=== PATIENT | female | born 1980 | race Caucasian/White ===

== ENCOUNTER 2020-09-13 14:55 | Outpatient (REF) | payer MEDICAID, SELFPAY ==
[2020-09-14 04:24] LABS: CT PCR NOT DETECTED (Not Detect.); NG PCR NOT DETECTED (Not Detect.)
[2020-09-14 09:34] LABS: BV Int Neg Control Negative (Negative); BV Int Pos Control Positive (Positive)
[2020-09-16 12:47] LABS: HPV mRNA E6/E7 rflx Not Detected (Not Detected)
== END 2020-09-13 14:56 | disposition home or self-care (01) ==
LOC: HO.LAB 14:55
PROVIDERS: PCP Family Medicine; Visit Provider Advanced Practice Midwife
DX: Z01.419 Encounter for gynecological examination (general) (routine) without abnormal findings (principal); N89.8 Other specified noninflammatory disorders of vagina; Z20.2 Contact with and (suspected) exposure to infections with a predominantly sexual mode of transmission
CPT/HCPCS: 87480; 87491; 87510; 87591; 87624; 87625; 87660; 88142

== ENCOUNTER 2021-02-01 13:25 | Outpatient (REF) | payer MEDICAID, SELFPAY | END 2021-02-01 13:26 | disposition home or self-care (01) | LOC: HO.MAMMO 13:25 | PROVIDERS: PCP Family Medicine; Visit Provider Advanced Practice Midwife | DX: Z13.89 Encounter for screening for other disorder (principal) ==

== ENCOUNTER 2021-12-28 14:38 | Outpatient (REF) | payer MEDICAID, SELFPAY ==
[2021-12-28 17:57] LABS: CT PCR NOT DETECTED (Not Detect.); NG PCR NOT DETECTED (Not Detect.)
[2021-12-29 11:04] LABS: BV Int Neg Control Negative (Negative); BV Int Pos Control Positive (Positive)
== END 2021-12-28 14:39 | disposition home or self-care (01) ==
LOC: HO.LAB 14:38
PROVIDERS: Visit Provider Advanced Practice Midwife
DX: Z01.411 Encounter for gynecological examination (general) (routine) with abnormal findings (principal); R10.2 Pelvic and perineal pain; N63.0 Unspecified lump in unspecified breast; Z20.2 Contact with and (suspected) exposure to infections with a predominantly sexual mode of transmission
CPT/HCPCS: 87480; 87491; 87510; 87591; 87660

== ENCOUNTER 2022-01-18 10:36 | Outpatient (REF) | payer MEDICAID, SELFPAY ==
--- NOTE | ~2022-01-18 | MM_ITS ---
EXAMINATION: MM DIAGNOSTIC DIGITAL BREAST TOMOSYNTHESIS, BILATERAL US DIAGNOSTIC ULTRASOUND BREAST, LEFT CLINICAL INFORMATION: 41-year-old with recent palpable fullness anterior left breast, now resolved. No palpable concern at time of appointment. The lifetime risk of breast cancer based on the Tyrer-Cuzick Model is 11%. COMPARISON: Mammography: 09/27/2017 (diagnostic baseline), bilateral targeted breast ultrasound 09/27/2017. TECHNIQUE: Digital breast tomosynthesis is performed in both the craniocaudal and mediolateral oblique views along with computer-aided detection (CAD). Synthesized 2D images are generated from the tomosynthesis. Ultrasound left breast is targeted to recent area of clinical concern predominantly 2:00 through 5:00 position. Grayscale imaging and color Doppler are performed without and with harmonics. FINDINGS: The breasts are heterogeneously dense, which may obscure small masses (ACR BI-RADS breast composition Category c). There is fibrocystic parenchymal pattern with small round and oval areas of minor waxing and waning asymmetry. There is no significant mass or architectural abnormality or abnormal calcifications. The skin contours are smooth. Ultrasound left breast demonstrates scattered small cysts in the targeted area under 1 cm in size. There is no solid mass or architectural abnormality or focal duct ectasia. Results are discussed with the patient at time of visit, using an food and nutrition teacher. MM/MM tomosynthesis screening BI IMPRESSION: -No mammographic evidence of malignancy. -Small scattered simple cysts on targeted ultrasound left breast. ASSESSMENT: BI-RADS 2: Benign RECOMMENDATION: Routine annual mammography screening. This patient's information was entered into a reminder system with a target due date for their next mammogram.
== END 2022-01-18 10:37 | disposition home or self-care (01) ==
LOC: HO.MAMMO 10:36
PROVIDERS: Visit Provider Advanced Practice Midwife
DX: Z12.31 Encounter for screening mammogram for malignant neoplasm of breast (principal); N63.21 Unspecified lump in the left breast, upper outer quadrant
CPT/HCPCS: 76642; 77063; 77067

== ENCOUNTER 2022-01-30 10:12 | Outpatient (REF) | payer MEDICAID, SELFPAY ==
--- NOTE | ~2022-01-30 | US_ITS ---
EXAMINATION: US PELVIS AND TRANSVAGINAL CLINICAL INFORMATION: Pain. COMPARISON: None TECHNIQUE: Ultrasound of the pelvis is performed using both transabdominal and transvaginal transducers along with Doppler. Transvaginal imaging is performed due to inadequate visualization transabdominally. FINDINGS: The uterus is anteverted and measures 8.6 x 5.1 x 5.3 cm. The endometrium appears slightly thickened measuring 1.7 cm. The endometrium is slightly heterogeneous-appearing. There is increased vascularity seen. Follow-up exam following several menstrual cycles is recommended. No focal uterine lesion is seen. There are nabothian cysts in the cervix. Ovaries are normal-appearing. The right ovary measures 2.6 x 3.2 x 1.1 cm. The left ovary measures 2.5 x 1.8 x 1.4 cm. There are several small left ovarian cysts. There is no fluid in the pelvis. US/US pelvic and transvaginal IMPRESSION: Slightly thickened heterogeneous-appearing endometrium. Follow-up exam following several menstrual cycles is recommended to see if this is a persistent finding. Otherwise, unremarkable exam.
== END 2022-01-30 10:13 | disposition home or self-care (01) ==
LOC: HO.US 10:12
PROVIDERS: Visit Provider Advanced Practice Midwife
DX: R10.2 Pelvic and perineal pain (principal)
CPT/HCPCS: 76830; 76856

== ENCOUNTER → 2022-02-17 13:15 | Outpatient (BNVA) | payer MEDICAID, SELFPAY | PROVIDERS: PCP Family Medicine; Visit Provider Advanced Practice Midwife | DX: Z71.2 Person consulting for explanation of examination or test findings (principal); R10.2 Pelvic and perineal pain; R93.89 Abnormal findings on diagnostic imaging of other specified body structures; Q51.9 Congenital malformation of uterus and cervix, unspecified | CPT/HCPCS: 99212 ==

== ENCOUNTER 2022-04-19 12:23 | Outpatient (REF) | payer MEDICAID, SELFPAY ==
--- NOTE | ~2022-04-19 | US_ITS ---
EXAMINATION: US PELVIS CLINICAL INFORMATION: Bilateral lower pelvic pain. Uterus/cervix malformation. Two-month followup. COMPARISON: 01/31/2022 TECHNIQUE: Ultrasound of the pelvis is performed using both transabdominal and transvaginal transducers along with Doppler. Transvaginal imaging is performed due to inadequate visualization transabdominally. FINDINGS: UTERUS: The uterus is anteverted and measures 8.4 x 4.3 x 5.5 cm. Nabothian cysts are present within the cervix. The double wall endometrial thickness is thickened at 19 mm. There is again noted to be a poorly defined essentially isoechoic endometrial region measuring 2.6 x 1.1 x 2.8 cm in size which may represent an endometrial polyp. This was seen on previous study of 01/31/2022 however it is difficult to compare sizes without definite change in configuration. This may represent an endometrial polyp. The uterus is smooth in contour and has normal myometrial echogenicity. No visible fibroid. ADNEXA: Both ovaries are visualized. There is normal color flow to the adnexa. There is no ovarian torsion. There is no significant pelvic ascites or fluid collection. Right ovary measures 3.0 x 2.2 x 2.2 cm. There is a question of ruptured corpus luteum measuring 2.2 x 1.5 x 1.6 cm in size with minimal amount of free fluid adjacent to the ovary. Left ovary measures 2.0 x 1.9 x 1.1 cm. No left ovarian abnormality appreciated. US/US pelvic and transvaginal IMPRESSION: Question ruptured corpus luteal cyst right ovary as described. Nabothian cyst. Thickened endometrium to 1.9 cm in diameter with question isoechoic poorly-defined mass measuring up to 2.8 cm in size which could possibly represent an endometrial polyp. I cannot definitely perceive significant change compared to imaging of 01/30/2022.
== END 2022-04-19 12:24 | disposition home or self-care (01) ==
LOC: HO.US 12:23
PROVIDERS: Visit Provider Advanced Practice Midwife
DX: Q51.9 Congenital malformation of uterus and cervix, unspecified (principal)
CPT/HCPCS: 76830; 76856

== ENCOUNTER → 2022-05-30 14:37 | Outpatient (BNVA) | payer MEDICAID, SELFPAY | PROVIDERS: PCP Family Medicine; Visit Provider Advanced Practice Midwife | DX: N85.8 Other specified noninflammatory disorders of uterus (principal); Z71.2 Person consulting for explanation of examination or test findings | CPT/HCPCS: 99212 ==

== ENCOUNTER → 2022-07-03 14:53 | Outpatient (BNVA) | payer MEDICAID, SELFPAY | PROVIDERS: PCP Family Medicine; Visit Provider Obstetrics & Gynecology | DX: N94.89 Other specified conditions associated with female genital organs and menstrual cycle (principal) | CPT/HCPCS: 99212 ==

== ENCOUNTER 2022-07-21 08:35 | Day surgery (SDC) | payer MEDICAID, SELFPAY ==
[2022-07-17 10:34] VITALS: BMI 28.3
--- NOTE | 2022-07-20 08:48 | HO.ANESPROP2 ---
Documented by User: Marija Watkins NP 07/20/22 08:48 HPI - Anesthesia Eval Consult details Narrative: 42yo F for D&C Hysteroscopy possible polypectomy,possible myomectomy PMFSH Active Problems Active Problems: All Active Problems (Updated 07/03/22 @ 15:37 by Zev Zhu MD) Endometrial mass (Acute) Uterine mass (Acute) Encounter to discuss test results (Acute) Pelvic pain (Acute) Past Medical History Medical History Pelvic pain HTN (hypertension) Family History Family History Father Hypertension Hx of diabetes mellitus Hx of heart disorder Mother Hypertension Paternal Grandmother Family hx-stroke Paternal Grandfather Hypertension Maternal Aunt Hx of diabetes mellitus Maternal Grandmother Family history of cancer Surgical History Surgical History History of facial surgery Hx of tubal ligation Social History Alcohol intake: never Patient Tobacco Use Status: Never used Tobacco Gender identity: Female Meds Allergies Allergy/AdvReac Type Severity Reaction Status Date / Time No Known Allergies Allergy Verified 08/15/23 13:27 Home Medications Medication Instructions Recorded Confirmed Last Taken Type lisinopril 5 mg tablet 5 mg PO DAILY 12/28/21 07/21/22 Unknown History Exam Exam Date and Time: July 20, 2022 0848 Height,Weight and Vital Signs: Height 5 ft 2 in Weight 70.307 kg Assessment and Plan Assessment Anesthesia Assessment: Chart Reviewed Documented by User: Ancelmo Epps MD 09/13/23 23:39 PMFSH Past Medical History Medical History Pelvic pain HTN (hypertension) Functional capacity: independent ambulation Family History Family History Father Hypertension Hx of diabetes mellitus Hx of heart disorder Mother Hypertension Paternal Grandmother Family hx-stroke Paternal Grandfather Hypertension Maternal Aunt Hx of diabetes mellitus Maternal Grandmother Family history of cancer Family history of problems with anesthesia: No Surgical History Surgical History History of facial surgery Hx of tubal ligation History of Problems with Anesthesia: No Social History Alcohol intake: never Patient Tobacco Use Status: Never used Tobacco Gender identity: Female Meds Allergies Allergy/AdvReac Type Severity Reaction Status Date / Time No Known Allergies Allergy Verified 08/15/23 13:27 Home Medications Medication Instructions Recorded Confirmed Last Taken Type lisinopril 5 mg tablet 5 mg PO DAILY 12/28/21 07/21/22 Unknown History Exam Airway Mallampati Class: III Loose/Missing/Broken Teeth: Yes (Fillings ) Assessment and Plan Assessment Anesthesia Assessment: Anesthesia Plan Discussed Final Anesthetic Review Family History of Problems with Anesthesia: No History of Problems with Anesthesia: No NPO: Yes ASA Class: II Final Preanesthetic Review: Meds/Allgs Chart Reviewed, Consent Obtained/Reviewed and Anes Risks/Benef Reviewed Patient Risk: Intermediate Procedure Risk: Intermediate Anesthetic Plan Anesthetic Plan: GA and Agree w/ Assess. and Plan Disposition: Standard PACU
[2022-07-21] VITALS (7 sets, daily range): BP systolic 128–168; BP diastolic 74–94; PULSE 79–96; RESP 15–16; TEMP 36.2–36.7; O2SAT 98–100; BMI 27.4
[2022-07-21 09:18] LABS: UPreg QC Valid YES; Urine Pregnancy NEGATIVE (NEGATIVE)
[2022-07-21] MEDS: Lactated Ringers 1,000 ML 100 ML IVCONT (09:26)
--- NOTE | 2022-07-21 11:17 | PM.OP ---
Brief Operative Note Date of Service: 07/21/22 Pre-op diagnosis: Abnormal uterine bleeding, endometrial polyp by ultrasound Post-op diagnosis: same (Endometrial polyp) Procedure: Hysteroscopy D&C, Polypectomy Surgeon: Zev Zhu MD Anesthesia: GLMA Was an High School Coach used for this Procedure?: No Estimated blood loss (mL): 0 Pathology: other (Endometrial Scrapping. Polyp) Condition: stable Disposition: PACU
--- NOTE | 2022-07-21 11:18 | W.PM.OPN ---
Operative Note Operative Note Date of Service: 07/21/22 Narrative: Preop Diagnosis: Abnormal uterine bleeding and Endometrial polyp by US Operation: Diagnostic Hysteroscopy, Dilataion & Curettage and polypectomy Post Op Diagnosis: Endometrial Polyp QBL: Minimal Anesthesia: GLMA Surgeon: Zev Zhu MD Marketing Proposal Specialist: None Complication: None Pathology: Endometrial Scrapings, Endometrial polyp Procedure: The patient was put in the dorsal lithotomy position, scrubbed, and draped in the usual manner. A sterile speculum was inserted in the patient's vagina. The anterior lip of the cervix was grasped with a single tooth tenaculum. The cervix was dilated up to 5 mm, then the scope was inserted in the patient's uterus. Inspection revealed endometrial polyp. The Myosure Reach device was used; it was introduced through the operative channel and polypectomy done with no complications. The scope was then taken out from the uterine cavity, sharp curettings was carried on with minimal to moderate amount of tissues retrieved. At the end of the procedure, all instruments were taken out of the patient uterine and vaginal cavity. The single tooth tenaculum was removed and homeostasis was assured using pressure,. The patient tolerated the procedure well and was transferred to the PACU in a stable condition.
== END 2022-07-21 12:45 | disposition home or self-care (01) ==
PROVIDERS: PCP Family Medicine; Visit Provider Obstetrics & Gynecology
PROC: 0UDB8ZZ Extraction of Endometrium, Via Natural or Artificial Opening Endoscopic (ICD-10-PCS; CPT 58558; principal; 2022-07-21 10:30)
DX: N93.9 Abnormal uterine and vaginal bleeding, unspecified (principal); N84.0 Polyp of corpus uteri; I10 Essential (primary) hypertension; Z79.899 Other long term (current) drug therapy; Z98.51 Tubal ligation status
CPT/HCPCS: 58558; 81025; 88305; J0330; J1100; J2250; J2405; J3010

== ENCOUNTER → 2022-08-02 12:01 | Outpatient (BNVA) | payer MEDICAID, SELFPAY | PROVIDERS: PCP Family Medicine; Visit Provider Obstetrics & Gynecology | DX: N94.89 Other specified conditions associated with female genital organs and menstrual cycle (principal) | CPT/HCPCS: 99212 ==

== ENCOUNTER 2022-10-17 18:10 | Emergency (ER) | payer MEDICAID, SELFPAY ==
--- NOTE | ~2022-10-17 | CT_ITS ---
EXAMINATION: CT ANGIOGRAM OF THE CHEST WITH AND WITHOUT CONTRAST (CT PULMONARY ANGIOGRAM FOR PE) CLINICAL INFORMATION: Reason for Exam + dimer sob COMPARISON: None TECHNIQUE: Prior to contrast administration, noncontrast localization images were obtained. Subsequently, multidetector volumetric imaging was performed from the thoracic inlet to below the diaphragms following the administration of 71 mL Omnipaque 350 intravenous contrast. No contrast reaction reported Sagittal, coronal, and MIP oblique sagittal reformatted images were obtained on the CT workstation, uploaded to PACS, and reviewed. This CT examination was performed using dose optimization techniques as appropriate, variously including the following: *Automated exposure control *Adjustment of mA and/or kV according to patient size (this includes techniques or standardized protocols for targeted exams where dose is matched to indication/reason for exam; i.e. extremities or head) *Use of iterative reconstruction technique Total exam dose-length product 147 mGy-cm FINDINGS: QUALITY OF STUDY/CONTRAST BOLUS: Satisfactory. PULMONARY ARTERIES: No central or segmental pulmonary emboli. THORACIC AORTA: No aneurysm or dissection. LUNG: No focal consolidation, nodules or masses. PLEURA: No pleural effusion or pneumothorax. MEDIASTINUM: Normal heart size. No pericardial effusion. No hilar or mediastinal lymphadenopathy. No evidence of septal bowing or right heart strain. CHEST WALL/AXILLA: No axillary or internal mammary lymphadenopathy. OSSEOUS STRUCTURES: No acute or suspicious osseous abnormality. UPPER ABDOMEN: There is a 1.7 cm enhancing structure in the lateral segment of liver adjacent to the falciform ligament with enhancing portions similar to that of blood pool favored to represent a hemangioma. CT/CT angio chest PE protocol IMPRESSION: * No pulmonary embolism. * No aortic dissection. * No acute pulmonary abnormalities. * Probable hemangioma in the lateral segment of the liver. Recommend ultrasound to confirm, nonemergent. VTE: negative
--- NOTE | ~2022-10-17 | XR_ITS ---
EXAMINATION: XR CHEST CLINICAL INFORMATION: Chest pain COMPARISON: None TECHNIQUE: Frontal view of the chest was obtained. FINDINGS: No significant abnormality is noted involving the heart, lungs, mediastinum, bony thorax or soft tissues. XR/XR chest 1V IMPRESSION: Unremarkable chest examination.
[2022-10-17 19:12] VITALS: BP 165/84; PULSE 90; RESP 16; TEMP 37.1; O2SAT 100; BMI 27.6
--- NOTE | 2022-10-17 19:20 | ED.GENADULT ---
HPI - General Adult General Chief complaint: Abdominal Pain <NICO Wang - Last Filed: 10/17/22 19:59> Stated complaint: L side bothersome <NICO Wang - Last Filed: 10/17/22 19:59> Time Seen by Provider: 10/17/22 23:21 <NICO Wang - Last Filed: 10/17/22 19:59> Source: patient, family and automobile service writer <Elisa Ridley MD - Last Filed: 10/17/22 23:44> Mode of arrival: ambulatory <Elisa Ridley MD - Last Filed: 10/17/22 23:44> Limitations: no limitations <Elisa Ridley MD - Last Filed: 10/17/22 23:44> History of Present Illness HPI narrative: 42-year-old female came in for evaluation of left chest / left upper quadrant abdominal pain that started 4 days ago, pain was described as constant for the last 4 days, pain is localized to the left rib area and left upper quadrant abdominal area, no radiation, pain is moderate 5/10, pain is worsening with deep breath and movement, patient declined recent travel or prolonged immobilization, no lower extremity swelling or pain, no difficulty breathing, no history of DVT or PE. No nausea, no vomiting, no diarrhea, normal bowel movements, no dysuria, no frequency urination, patient declined chance being , no risk for STD or vaginal discharge. <Elisa Ridley MD - Last Filed: 10/17/22 23:44> Related Data Home medications: Home Medications Medication Instructions Recorded Confirmed lisinopril 5 mg tablet 5 mg PO DAILY 12/28/21 07/21/22 Previous Rx's Medication Instructions Recorded ibuprofen 600 mg tablet 400 mg PO Q8H PRN pain #20 tabs 10/17/22 <NICO Wang - Last Filed: 10/17/22 19:59> Allergies/adverse reactions: Allergies Allergy/AdvReac Type Severity Reaction Status Date / Time No Known Allergies Allergy Verified 08/02/22 12:11 <NICO Wang - Last Filed: 10/17/22 19:59> Review of Systems Review of Systems: All other systems are reviewed and are negative Constitutional: Reports as per HPI and Reports no additional constitutional complaints Eyes: Reports as per HPI and Reports no additional eye complaints Reports system reviewed and no additional complaints, except as documented Cardiovascular: Reports as per HPI and Reports no additional cardiovascular complaints Respiratory: Reports as per HPI and Reports no additional respiratory complaints Gastrointestinal: Reports as per HPI and Reports no additional gastrointestinal complaints Genitourinary: Reports no additional female genitourinary complaints Musculoskeletal: Reports no additional musculoskeletal complaints Skin/Breast: Reports system reviewed and no additional complaints, except as docu Psychiatric: Reports no additional psychiatric complaints Endocrine: Reports no additional endocrine complaints Hematologic/Lymphatic: Reports no additional hematologic/lymphatic complaints Allergic/Immunologic: Reports no additional allergic/immunologic complaints Reports system reviewed and no additional complaints, except as documented and Reports Abnormal speech present <Elisa Ridley MD - Last Filed: 10/17/22 23:44> [facility] Past Medical History Medical History: Medical History HTN (hypertension) Pelvic pain <NICO Wang - Last Filed: 10/17/22 19:59> Surgical History: Surgical History History of facial surgery Hx of tubal ligation <NICO Wang - Last Filed: 10/17/22 19:59> Family History Family History: Family History Father Hypertension Hx of diabetes mellitus Hx of heart disorder Mother Hypertension Paternal Grandmother Family hx-stroke Paternal Grandfather Hypertension Maternal Aunt Hx of diabetes mellitus Maternal Grandmother Family history of cancer <NICO Wang - Last Filed: 10/17/22 19:59> Social History Social History: Social History Alcohol intake: never Patient Tobacco Use Status: Never used Tobacco Advance Directives: No Advance Directives Information Provided: No Gender identity: Female <NICO Wang - Last Filed: 10/17/22 19:59> Physical Exam ED Vital Signs: Vital Signs - 24 hr 10/17/22 19:12 10/17/22 23:20 Temperature 98.7 F 98.1 F Pulse Rate 90 98 Respiratory Rate 16 16 Blood Pressure 165/84 H 142/71 H Pulse Oximetry 100 100 Oxygen Delivery Method Room Air Room Air BMI result Body Mass Index 27.6 <NICO Wang - Last Filed: 10/17/22 19:59> Vital Signs - 24 hr 10/17/22 19:12 10/17/22 23:20 Temperature 98.7 F 98.1 F Pulse Rate 90 98 Respiratory Rate 16 16 Blood Pressure 165/84 H 142/71 H Pulse Oximetry 100 100 Oxygen Delivery Method Room Air Room Air BMI result Body Mass Index 27.6 vital signs have been reviewed as appeared to be correct. Blood pressure normal. Heart rate normal. Respiration rate normal. Temperature normal. Oxygen saturation normal. <Elisa Ridley MD - Last Filed: 10/17/22 23:44> Appearance: Alert. Oriented X3. No acute distress. Head: Normal external exam. Normocephalic. Atraumatic. No Asif signs noted. No raccoon eyes noted Eyes: PERRLA. EOMI. Conjunctiva and sclera normal. Eyelids normal. ENT: TM's Normal. Pharynx normal. Uvula midline. Moist mucous membranes. No trismus noted. No drooling noted. No muffled voice noted. Neck: Normal inspection. Neck supple. FROM. No adenopathy. Thyroid Normal. No meningeal signs. No neck mass noted. CVS: Normal heart rate and rhythm. Heart sound normal. No murmurs noted. Pulses normal throughout. Respiratory: No respiratory distress. Painless inspiration. Breath sounds normal. No wheezes/rales/rhonchi noted. Chest nontender. No accessory muscle usage noted or decreased air movement noted. Abdomen: Soft and nontender. Bowel sounds normal in all 4 quadrants. No distention noted. No organomegaly noted. No visible injury noted. Back: No CVA tenderness. Full range of motion noted. Skin: Skin warm and dry. Normal skin color. Normal skin turgor. No rashes/lesions/lacerations noted. Extremities: No lower extremity edema. Extremities exhibit normal range of motion. Extremities nontender. Neuro: Oriented X 3. Cranial nerve exam: II-XII are grossly intact No motor deficit. No sensory deficit. Reflexes normal. <Elisa Ridley MD - Last Filed: 10/17/22 23:44> Course Course Course Narrative: 1919 42 year old female presents w/ LUQ pain, cp and pain is also felt in her ribs with deep breathing X 4 days. No hx of PE or DVT PE benign Plan- labs imaging <NICO Wang - Last Filed: 10/17/22 19:59> Reevaluation(s) Reevaluation #1: 42-year-old female otherwise healthy presented with left-sided chest/ left upper quadrant pain. Patient has unremarkable labs/ UA. CTA of the chest was ordered because the concern of D-dimer elevation and risk for PE , no PE on the CT. Will discharge the patient after reassurance and recommended NSAIDs for pain. <Elisa Ridley MD - Last Filed: 10/17/22 23:44> Medical Decision Making Differential Diagnosis Differential Diagnoses: The differential diagnosis associated with the presentation includes ( Chest pain/ pneumonia/pleural effusion /pleurisy/ PE.) <Elisa Ridley MD - Last Filed: 10/17/22 23:44> Lab Data MDM Lab Attestation statement: I reviewed the patient's lab results. <Elisa Ridley MD - Last Filed: 10/17/22 23:44> Result Diagrams: : 10/17/22 19:39 10/17/22 19:39 <NICO Wang - Last Filed: 10/17/22 19:59> Labs: Lab Results 10/17/22 10/17/22 10/17/22 Range/Units 19:38 19:39 19:39 WBC 9.6 (4.8-10.8) X10*3/uL RBC 3.65 L (4.20-5.50) X10*6/uL Hgb 10.3 L (12.0-16.0) g/dl Hct 31.9 L (37.0-47.0) % MCV 87.4 (80.0-98.0) fL MCH 28.2 (27.0-33.0) pg MCHC 32.3 (31.0-35.0) g/dl RDW 12.2 (11.0-16.0) % Plt Count 342 (160-400) X10*3/uL MPV 8.8 L (9.4-12.3) fL Immature Gran % (Auto) 0.4 (0.0-0.4) % Neut % (Auto) 61.8 (45-73) % Lymph % (Auto) 27.8 (20-40) % [place] % (Auto) 8.8 (2-11) % Eos % (Auto) 0.9 (0-4) % Baso % (Auto) 0.3 (0-2) % Lymph # (Auto) 2.7 (1.2-4.9) X10*3/uL [place] # (Auto) 0.8 (0.1-1.2) X10*3/uL Eos # (Auto) 0.1 (0.0-0.4) X10*3/uL Baso # (Auto) 0.0 (0.0-0.2) X10*3/uL Abs Immat Gran (auto) 0.04 H (0.00-0.03) X10*3/uL Absolute Neuts (auto) 5.9 (2.0-8.3) x10*3/uL Absolute Nucleated RBC 0.000 (0.0-0.012) X10*3/uL Nucleated RBC % (auto) 0.0 (0.0-0.2) /100WBC D-Dimer High Sensitivty 387 NG/ML Sodium (135-145) mmol/L Potassium (3.3-5.1) mmol/L Chloride (96-108) mmol/L Carbon Dioxide (22-29) mmol/L Anion Gap (12-20) BUN (9-16) mg/dL Creatinine (0.5-1.4) mg/dL Estim Creat Clear Calc Estimated GFR Random Glucose (60-115) mg/dL Calcium (8.4-10.2) mg/dL Magnesium (1.6-2.6) mg/dL Total Bilirubin (0.0-1.0) mg/dL AST (5-31) U/L ALT (0-31) U/L Alkaline Phosphatase (39-117) U/L Troponin I High Sens (<3.5-17.0) ng/L Total Protein (6.5-8.0) g/dL Albumin (3.5-5.0) g/dL Influenza Type A (PCR) NEGATIVE (Negative) Influenza Type B (PCR) NEGATIVE (Negative) RSV RNA Qual (PCR) NEGATIVE (Negative) SARS-CoV-2 RNA (RT-PCR) NEGATIVE (Negative) 10/17/22 10/17/22 Range/Units 19:39 19:39 WBC (4.8-10.8) X10*3/uL RBC (4.20-5.50) X10*6/uL Hgb (12.0-16.0) g/dl Hct (37.0-47.0) % MCV (80.0-98.0) fL MCH (27.0-33.0) pg MCHC (31.0-35.0) g/dl RDW (11.0-16.0) % Plt Count (160-400) X10*3/uL MPV (9.4-12.3) fL Immature Gran % (Auto) (0.0-0.4) % Neut % (Auto) (45-73) % Lymph % (Auto) (20-40) % [place] % (Auto) (2-11) % Eos % (Auto) (0-4) % Baso % (Auto) (0-2) % Lymph # (Auto) (1.2-4.9) X10*3/uL [place] # (Auto) (0.1-1.2) X10*3/uL Eos # (Auto) (0.0-0.4) X10*3/uL Baso # (Auto) (0.0-0.2) X10*3/uL Abs Immat Gran (auto) (0.00-0.03) X10*3/uL Absolute Neuts (auto) (2.0-8.3) x10*3/uL Absolute Nucleated RBC (0.0-0.012) X10*3/uL Nucleated RBC % (auto) (0.0-0.2) /100WBC D-Dimer High Sensitivty NG/ML Sodium 139 (135-145) mmol/L Potassium 3.7 (3.3-5.1) mmol/L Chloride 104 (96-108) mmol/L Carbon Dioxide 25 (22-29) mmol/L Anion Gap 14 (12-20) BUN 10 (9-16) mg/dL Creatinine 0.68 (0.5-1.4) mg/dL Estim Creat Clear Calc 97.8 Estimated GFR > 60 Random Glucose 95 (60-115) mg/dL Calcium 9.2 (8.4-10.2) mg/dL Magnesium 2.1 (1.6-2.6) mg/dL Total Bilirubin 0.4 (0.0-1.0) mg/dL AST 17 (5-31) U/L ALT 19 (0-31) U/L Alkaline Phosphatase 85 (39-117) U/L Troponin I High Sens < 3.5 (<3.5-17.0) ng/L Total Protein 7.6 (6.5-8.0) g/dL Albumin 4.5 (3.5-5.0) g/dL Influenza Type A (PCR) (Negative) Influenza Type B (PCR) (Negative) RSV RNA Qual (PCR) (Negative) SARS-CoV-2 RNA (RT-PCR) (Negative) <NICO Wang - Last Filed: 10/17/22 19:59> Lab Results 10/17/22 10/17/22 10/17/22 Range/Units 19:38 19:39 19:39 WBC 9.6 (4.8-10.8) X10*3/uL RBC 3.65 L (4.20-5.50) X10*6/uL Hgb 10.3 L (12.0-16.0) g/dl Hct 31.9 L (37.0-47.0) % MCV 87.4 (80.0-98.0) fL MCH 28.2 (27.0-33.0) pg MCHC 32.3 (31.0-35.0) g/dl RDW 12.2 (11.0-16.0) % Plt Count 342 (160-400) X10*3/uL MPV 8.8 L (9.4-12.3) fL Immature Gran % (Auto) 0.4 (0.0-0.4) % Neut % (Auto) 61.8 (45-73) % Lymph % (Auto) 27.8 (20-40) % [place] % (Auto) 8.8 (2-11) % Eos % (Auto) 0.9 (0-4) % Baso % (Auto) 0.3 (0-2) % Lymph # (Auto) 2.7 (1.2-4.9) X10*3/uL [place] # (Auto) 0.8 (0.1-1.2) X10*3/uL Eos # (Auto) 0.1 (0.0-0.4) X10*3/uL Baso # (Auto) 0.0 (0.0-0.2) X10*3/uL Abs Immat Gran (auto) 0.04 H (0.00-0.03) X10*3/uL Absolute Neuts (auto) 5.9 (2.0-8.3) x10*3/uL Absolute Nucleated RBC 0.000 (0.0-0.012) X10*3/uL Nucleated RBC % (auto) 0.0 (0.0-0.2) /100WBC D-Dimer High Sensitivty 387 NG/ML Sodium (135-145) mmol/L Potassium (3.3-5.1) mmol/L Chloride (96-108) mmol/L Carbon Dioxide (22-29) mmol/L Anion Gap (12-20) BUN (9-16) mg/dL Creatinine (0.5-1.4) mg/dL Estim Creat Clear Calc Estimated GFR Random Glucose (60-115) mg/dL Calcium (8.4-10.2) mg/dL Magnesium (1.6-2.6) mg/dL Total Bilirubin (0.0-1.0) mg/dL AST (5-31) U/L ALT (0-31) U/L Alkaline Phosphatase (39-117) U/L Troponin I High Sens (<3.5-17.0) ng/L Total Protein (6.5-8.0) g/dL Albumin (3.5-5.0) g/dL Influenza Type A (PCR) NEGATIVE (Negative) Influenza Type B (PCR) NEGATIVE (Negative) RSV RNA Qual (PCR) NEGATIVE (Negative) SARS-CoV-2 RNA (RT-PCR) NEGATIVE (Negative) 10/17/22 10/17/22 Range/Units 19:39 19:39 WBC (4.8-10.8) X10*3/uL RBC (4.20-5.50) X10*6/uL Hgb (12.0-16.0) g/dl Hct (37.0-47.0) % MCV (80.0-98.0) fL MCH (27.0-33.0) pg MCHC (31.0-35.0) g/dl RDW (11.0-16.0) % Plt Count (160-400) X10*3/uL MPV (9.4-12.3) fL Immature Gran % (Auto) (0.0-0.4) % Neut % (Auto) (45-73) % Lymph % (Auto) (20-40) % [place] % (Auto) (2-11) % Eos % (Auto) (0-4) % Baso % (Auto) (0-2) % Lymph # (Auto) (1.2-4.9) X10*3/uL [place] # (Auto) (0.1-1.2) X10*3/uL Eos # (Auto) (0.0-0.4) X10*3/uL Baso # (Auto) (0.0-0.2) X10*3/uL Abs Immat Gran (auto) (0.00-0.03) X10*3/uL Absolute Neuts (auto) (2.0-8.3) x10*3/uL Absolute Nucleated RBC (0.0-0.012) X10*3/uL Nucleated RBC % (auto) (0.0-0.2) /100WBC D-Dimer High Sensitivty NG/ML Sodium 139 (135-145) mmol/L Potassium 3.7 (3.3-5.1) mmol/L Chloride 104 (96-108) mmol/L Carbon Dioxide 25 (22-29) mmol/L Anion Gap 14 (12-20) BUN 10 (9-16) mg/dL Creatinine 0.68 (0.5-1.4) mg/dL Estim Creat Clear Calc 97.8 Estimated GFR > 60 Random Glucose 95 (60-115) mg/dL Calcium 9.2 (8.4-10.2) mg/dL Magnesium 2.1 (1.6-2.6) mg/dL Total Bilirubin 0.4 (0.0-1.0) mg/dL AST 17 (5-31) U/L ALT 19 (0-31) U/L Alkaline Phosphatase 85 (39-117) U/L Troponin I High Sens < 3.5 (<3.5-17.0) ng/L Total Protein 7.6 (6.5-8.0) g/dL Albumin 4.5 (3.5-5.0) g/dL Influenza Type A (PCR) (Negative) Influenza Type B (PCR) (Negative) RSV RNA Qual (PCR) (Negative) SARS-CoV-2 RNA (RT-PCR) (Negative) <Elisa Ridley MD - Last Filed: 10/17/22 23:44> Independent Interpretation I performed an independent interpretation of an: EKG ( normal sinus rhythm at 92 beats per minutes, normal intervals, normal axis deviation, no ST-T changes, no change from previous EKG.), Plain X-Ray ( Chest: No acute pathology.) and CT Scan ( CT angio of the chest: No PE, no intrathoracic pathology.) <Elisa Ridley MD - Last Filed: 10/17/22 23:44> Radiology Impression Discussion of test interpretation with radiology: I have reviewed the radiologist's reading. <Elisa Ridley MD - Last Filed: 10/17/22 23:44> Discharge Plan Discharge Clinical Impression: Pleurisy <NICO Wang - Last Filed: 10/17/22 19:59> Patient Disposition: Home, Self-Care <NICO Wang - Last Filed: 10/17/22 19:59> Instructions: Pleurisy (ED) <NICO Wang - Last Filed: 10/17/22 19:59> Prescriptions: New ibuprofen 600 mg tablet 400 mg PO Q8H PRN (Reason: pain) Qty: 20 0RF No Action lisinopril 5 mg tablet 5 mg PO DAILY <NICO Wang - Last Filed: 10/17/22 19:59> Referrals: Marianna Jacobo, DO [Primary Care Provider] - <NICO Wang - Last Filed: 10/17/22 19:59>
--- NOTE | 2022-10-17 19:21 | ECG_ITS ---
Test Reason : ABDOMINAL PAIN Blood Pressure : / mmHG Vent. Rate : 092 BPM Atrial Rate : 092 BPM P-R Int : 146 ms QRS Dur : 082 ms QT Int : 346 ms P-R-T Axes : 046 030 031 degrees QTc Int : 427 ms Normal sinus rhythm Normal ECG When compared with ECG of 10-JAN-2016 16:50, No significant change was found Referred By: Josh Lindsey Electronically Signed By:WANDA ROJAS MD
[2022-10-17 19:44] LABS: MANUAL DIFF FLAG NO
[2022-10-17 19:46] LABS: Basophils Percent Auto 0.3 % (0-2); Eosinophils Absolute Auto 0.1 X10*3/uL (0.0-0.4); Eosinophils Percent Auto 0.9 % (0-4); Hematocrit 31.9 % (37.0-47.0); Hemoglobin 10.3 g/dl (12.0-16.0); Imm Gran Abs Auto 0.04 X10*3/uL (0.00-0.03); Imm Gran Pct Auto 0.4 % (0.0-0.4); Lymphocytes Absolute Auto 2.7 X10*3/uL (1.2-4.9); Lymphocytes Percent Auto 27.8 % (20-40); Mean Corpuscular HGB Conc 32.3 g/dl (31.0-35.0); Mean Corpuscular Hemoglobin 28.2 pg (27.0-33.0); Mean Corpuscular Volume 87.4 fL (80.0-98.0); Mean Platelet Volume 8.8 fL (9.4-12.3); Monocytes Absolute Auto 0.8 X10*3/uL (0.1-1.2); Monocytes Percent Auto 8.8 % (2-11); Neutrophils Absolute Auto 5.9 x10*3/uL (2.0-8.3); Neutrophils Percent Auto 61.8 % (45-73); Platelet Count 342 X10*3/uL (160-400); Red Blood Count 3.65 X10*6/uL (4.20-5.50); Red Cell Distribution Width 12.2 % (11.0-16.0); White Blood Count 9.6 X10*3/uL (4.8-10.8)
[2022-10-17 19:57] LABS: D Dimer High Sensitivity 387 NG/ML
[2022-10-17 20:01] LABS: Alanine Aminotransferase 19 U/L (0-31); Albumin Level 4.5 g/dL (3.5-5.0); Alkaline Phosphatase 85 U/L (39-117); Anion Gap 14 (12-20); Aspartate Amino Transferase 17 U/L (5-31); Bilirubin Total 0.4 mg/dL (0.0-1.0); Blood Urea Nitrogen 10 mg/dL (9-16); Calcium 9.2 mg/dL (8.4-10.2); Carbon Dioxide 25 mmol/L (22-29); Chloride 104 mmol/L (96-108); Creatinine Clr Calc Pharmacy 97.8; Estimated Glomerular Filt Rate > 60; Glucose Random 95 mg/dL (60-115); Magnesium 2.1 mg/dL (1.6-2.6); Potassium 3.7 mmol/L (3.3-5.1); Sodium 139 mmol/L (135-145); Total Protein 7.6 g/dL (6.5-8.0)
[2022-10-17 20:23] LABS: Troponin-I High Sensitivity < 3.5 ng/L (<3.5-17.0)
[2022-10-17 20:40] LABS: Influenza A PCR NEGATIVE (Negative); Influenza B PCR NEGATIVE (Negative); Resp Syncy Virus RNA Qual PCR NEGATIVE (Negative); SARS COV2 PCR INHOUSE NEGATIVE (Negative)
[2022-10-17 23:20] VITALS: BP 142/71; PULSE 98; RESP 16; TEMP 36.7; O2SAT 100
[2022-10-17 23:43] LABS: Appearance Urine Clear; Color Urine Dark Yellow; Glucose Urine UA Negative (Negative); Leukocyte Esterase Urine Trace (Negative); Nitrite Urine Negative (Negative); Specific Gravity - Urine >= 1.030 (1.005-1.025); UMIC TRIGGER UACC YES; Urine Blood Negative (Negative); Urine Ketones Trace mg/dL (Negative); Urine Protein 30 (1+) mg/dL (Neg-Trace)
[2022-10-17 23:45] LABS: Bacteria Urine None Seen (None Seen); RBC Urine 0-2 /HPF (0-2); Squamous Epithelial Cell Urine 0-2 /HPF (0-2); WBC Urine 0-5 /HPF (0-5)
[2022-10-18] MEDS: iohexoL 350 MG/ML 100 ML INFUS..BTL IV (00:14)
== END 2022-10-18 02:14 | disposition home or self-care (01) ==
PROVIDERS: Physician Assistant; Emergency Provider Emergency Medicine; PCP Family Medicine
DX: R09.1 Pleurisy (principal); R10.12 Left upper quadrant pain; R07.89 Other chest pain; Z20.822 Contact with and (suspected) exposure to COVID-19; Z79.899 Other long term (current) drug therapy
CPT/HCPCS: 0241U; 71045; 71275; 80053; 81001; 83735; 84484; 85025; 85379; 93005; 99284; Q9967

== ENCOUNTER 2023-03-08 15:18 | Outpatient (REF) | payer MEDICAID, SELFPAY ==
--- NOTE | ~2023-03-08 | MM_ITS ---
EXAMINATION: MM SCREENING DIGITAL BREAST TOMOSYNTHESIS, BILATERAL CLINICAL INFORMATION: Screening. Asymptomatic. The lifetime risk of breast cancer based on the Tyrer-Cuzick Model is 10%. COMPARISON: Mammography: January 18, 2022 and September 27, 2017 TECHNIQUE: Digital breast tomosynthesis is performed in both the craniocaudal and mediolateral oblique views along with computer-aided detection (CAD). Synthesized 2D images are generated from the tomosynthesis. FINDINGS: The breasts are extremely dense, which lowers the sensitivity of mammography (ACR BI-RADS breast composition Category d). There are no new significant masses, abnormal calcifications, or other abnormalities. Scattered calcifications are seen bilaterally. MM/MM tomosynthesis screening BI IMPRESSION: No significant changes from prior exam. ASSESSMENT: BI-RADS 1: Negative RECOMMENDATION: Routine annual mammography screening. This patient's information was entered into a reminder system with a target due date for their next mammogram.
== END 2023-03-08 15:19 | disposition home or self-care (01) ==
LOC: HO.MAMMO 15:18
PROVIDERS: Visit Provider Family Medicine
DX: Z12.31 Encounter for screening mammogram for malignant neoplasm of breast (principal)
CPT/HCPCS: 77063; 77067

== ENCOUNTER 2023-08-15 13:14 | Outpatient (REF) | payer MEDICAID, SELFPAY ==
[2023-08-15 14:41] LABS: Hematocrit 34.3 % (37.0-47.0); Hemoglobin 11.4 g/dl (12.0-16.0); Mean Corpuscular HGB Conc 33.2 g/dl (31.0-35.0); Mean Corpuscular Hemoglobin 29.3 pg (27.0-33.0); Mean Corpuscular Volume 88.2 fL (80.0-98.0); Mean Platelet Volume 9.3 fL (9.4-12.3); Platelet Count 287 X10*3/uL (160-400); Red Blood Count 3.89 X10*6/uL (4.20-5.50); Red Cell Distribution Width 12.8 % (11.0-16.0); White Blood Count 7.4 X10*3/uL (4.8-10.8)
[2023-08-15 15:51] LABS: Thyroid Stimulating Hormone 1.44 uIU/mL (0.32-4.0)
[2023-08-16 04:16] LABS: Syphilis Screen Nonreactive (Nonreactive)
[2023-08-16 04:31] LABS: HBc Num1 0.18 S/CO (0.00-0.79); HIV AB/AG Nonreactive (Nonreactive); HIV Num 1 0.05 S/CO (0.00-0.99); Hepatitis B Core Antibody Nonreactive (Nonreactive); ~HepC Num1 0.16 S/CO (0.00-0.79); ~Hepatitis C Antibody Nonreactive (Nonreactive)
== END 2023-08-15 13:15 | disposition home or self-care (01) ==
LOC: HO.LAB 13:14
PROVIDERS: Visit Provider Advanced Practice Midwife
DX: Z01.419 Encounter for gynecological examination (general) (routine) without abnormal findings (principal); N89.8 Other specified noninflammatory disorders of vagina; N92.1 Excessive and frequent menstruation with irregular cycle; Z20.2 Contact with and (suspected) exposure to infections with a predominantly sexual mode of transmission
CPT/HCPCS: 0353U; 36415; 84443; 85027; 86704; 86780; 86803; 87389; 87480; 87510; 87660; 99396

== ENCOUNTER 2023-08-15 13:14 | Outpatient (AMB) | payer MEDICAID, SELFPAY ==
--- NOTE | 2023-08-15 13:25 | MHC.OFFVIS ---
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 Scribed for DOMO Toribio by Jenny Flynn medical coding instructor, on 08/15/2023 at 1:47 pm, EST. Audit Reviewer Required: Yes Audit Reviewer Language: Car Supplier Name: [employer] Information Interpreted: non-clinical & clinical Youth Associate: Youth Associate Present ([employer]) Allergies No Known Allergies Allergy (Verified 08/15/23 13:27) Is last menstrual period known: Yes Last menstrual period: 07/25/23 HPI HPI Comments History of Present Illness Details She is a premenopausal woman presenting for annual examination. Doing well with no concerns. She tries to eat healthy and stays active with exercise. Regular monthly menses that last approximately 07/25/2023. Menses last for around 5-7 days with about 3 heavy days. She denies vaginal irritation. Confirms vaginal itching. She has been using Always pads and occasionally applies Vaseline. STI screening offered; she accepts. Denies family history of breast, ovarian or colon cancer. Last pap smear 09/13/2020, was negative. History of endometrial polys treated last year. Her symptoms have not improved. [facility] Medical History Pelvic pain HTN (hypertension) Surgical History History of facial surgery Hx of tubal ligation Family History Father Hypertension Hx of diabetes mellitus Hx of heart disorder Mother Hypertension Paternal Grandmother Family hx-stroke Paternal Grandfather Hypertension Maternal Aunt Hx of diabetes mellitus Maternal Grandmother Family history of cancer Social History Alcohol intake: never Patient Tobacco Use Status: Never used Tobacco Gender identity: Female Female Reproductive History Menstrual Age of Menarche: 13 Date of last menstrual period: 07/25/23 control method: permanent sterilization Permanent Sterilization: BTL Total pregnancies: 3 Full term: 3 Number of Living Children: 3 Date of last pap smear: 09/13/20 (neg pap and hpv) Date of Mammogram: 03/08/23 (Birad 1) Review of Systems Const All systems reviewed & are unremarkable except as noted in HPI and below Reports menorrhagia and Reports vaginal pruritus (intermittent) Physical Exam Vital Signs: Last Vital Signs BP 126/76 08/15/23 13:27 BMI result Body Mass Index 26.7 Const General: cooperative, healthy appearing, no acute distress, well developed and alert Orientation/consciousness: patient oriented x3 HEENT Head: Yes normal to inspection Eyes General: appearance normal, both eyes and all related structures Neck Neck: Yes normal visual inspection Thyroid: Thyroid normal Chest Chest palpation & inspection: normal inspection of the chest Breast/axilla inspection: normal inspection of the breasts (no puckering, dimpling, peau de orange, retraction, discharge, masses) Breast/axilla palpation: normal palpation of the breasts Resp Effort & Inspection: normal respiratory effort GI Inspection: Yes normal to inspection Palpation (GI): Soft to palpation Rectal Exam - Female: deferred General: Yes bladder normal to inspection and Yes bladder normal to palpation External Female Exam: normal external appearance and normal appearance of the urethra Speculum Exam - Vagina: normal palpation and erythematous Speculum Exam - Cervix: normal palpation Bimanual exam- vagina & uterus: normal bimanual exam, normal palpation, uterine size normal, bladder normal to palpation and normal palpation Bimanual Exam- Adnexa, other: normal adnexae and no masses Skin General skin exam: no rashes or lesions noted Neuro General: patient oriented x3 Cognition (Neuro): normal cognition Extrem General: Yes normal to inspection Psych Attitude: cooperative Thought process: Normal thought process present Assessment & Plan Assessment & Plan (1) Encounter for annual routine gynecological examination: Code(s): Z01.419 - Encounter for gynecological examination (general) (routine) without abnormal findings Plan: BV testing and GC/CT panel today. STD blood work ordered. Await results and treat accordingly. Discussed: Current recommendations for pap smears per ASCCP guidelines. Breast awareness and periodic self breast exams. Maintaining a healthy lifestyle including a well balanced diet and routine exercise. Encouraged condom use for STD and prevention. Encouraged patient to sign up for patient portal. All of her questions and concerns were addressed to the best of my ability She will return in one year for AG. (2) Vaginal itching: Code(s): N89.8 - Other specified noninflammatory disorders of vagina Plan: Clean with water only, no soaps to the area, dry well and wear cotton underwear. No intimacy until sx resolve. (3) Heavy menstrual bleeding: Code(s): N92.0 - Excessive and frequent menstruation with regular cycle Plan: CBC and TSH panel ordered today. Pelvic US ordered. Follow up in person for results. Orders: Orders Thyroid Stimulating Hormone Today N92.0 - Excessive and frequent menstruation with regular cycle, N92.1 - Excessive and frequent menstruation with irregular cycle Complete Blood Count no Diff Today N92.0 - Excessive and frequent menstruation with regular cycle Hepatitis C Antibody Today Z20.2 - Contact with and (suspected) exposure to infections with a predominantly sexual mode of transmission Hepatitis B Core Antibody Today Z20.2 - Contact with and (suspected) exposure to infections with a predominantly sexual mode of transmission Syphilis Screen Today Z20.2 - Contact with and (suspected) exposure to infections with a predominantly sexual mode of transmission HIV Ab/Ag Today Z20.2 - Contact with and (suspected) exposure to infections with a predominantly sexual mode of transmission US pelvic and transvaginal Today N92.0 - Excessive and frequent menstruation with regular cycle Coding Level of Care Code Est Pt Prev Care 40-64y(69739) Diagnoses Encounter for annual routine gynecological examination Z01.419 Vaginal itching N89.8 Heavy menstrual bleeding N92.0
[2023-08-15 13:27] VITALS: BP 126/76; BMI 26.7
== END 2023-08-15 14:53 | disposition home or self-care (01) ==
PROVIDERS: Visit Provider Advanced Practice Midwife
DX: Z01.419 Encounter for gynecological examination (general) (routine) without abnormal findings (principal); N89.8 Other specified noninflammatory disorders of vagina; N92.0 Excessive and frequent menstruation with regular cycle
CPT/HCPCS: 99396

== ENCOUNTER 2023-08-15 14:08 | Outpatient (REF) | payer MEDICAID, SELFPAY ==
[2023-08-16 13:39] LABS: BV Int Neg Control Negative (Negative); BV Int Pos Control Positive (Positive)
[2023-08-16 16:39] LABS: CT PCR NOT DETECTED (Not Detect.); NG PCR NOT DETECTED (Not Detect.)
== END 2023-08-15 14:09 | disposition home or self-care (01) ==
LOC: HO.LNP 14:08
PROVIDERS: Visit Provider Advanced Practice Midwife
DX: N92.0 Excessive and frequent menstruation with regular cycle (principal); N89.8 Other specified noninflammatory disorders of vagina
CPT/HCPCS: 0353U; 87480; 87510; 87660

== ENCOUNTER 2023-08-21 16:36 | Outpatient (REF) | payer MEDICAID, SELFPAY ==
[2023-08-22 01:26] LABS: CT PCR NOT DETECTED (Not Detect.); NG PCR NOT DETECTED (Not Detect.)
== END 2023-08-21 16:37 | disposition home or self-care (01) ==
LOC: HO.LNP 16:36
PROVIDERS: Visit Provider Advanced Practice Midwife
DX: N92.0 Excessive and frequent menstruation with regular cycle (principal); N89.8 Other specified noninflammatory disorders of vagina
CPT/HCPCS: 0353U

== ENCOUNTER 2023-10-16 15:14 | Outpatient (REF) | payer MEDICAID, SELFPAY ==
--- NOTE | ~2023-10-16 | US_ITS ---
EXAMINATION: US PELVIS CLINICAL INFORMATION: Heavy menses, last menstrual period first week of September. COMPARISON: 04/19/2022 TECHNIQUE: Ultrasound of the pelvis is performed using both transabdominal and transvaginal transducers along with Doppler. Transvaginal imaging is performed due to inadequate visualization transabdominally. FINDINGS: The uterus measures 8.5 x 4.2 x 5.1 cm. No discrete fibroids. Nabothian cysts. A 0.8 x 0.9 x 1.0 cm possible endometrial polyp with vascular stalk identified. Endometrial thickness is 16 mm. No significant free fluid. Right ovary measures 2.2 x 1.5 x 2.2 cm, volume of 5.5 mL. Left ovary measures 1.8 x 2.3 x 1.0 cm, volume 2.2 mL. The bilateral ovaries are grossly unremarkable, although visualization is limited due to bowel gas. US/US pelvic and transvaginal IMPRESSION: 1. A 1.0 cm possible endometrial polyp with vascular stalk identified. Gynecologic consultation and possible biopsy recommended. 2. No discrete fibroids. 3. Bilateral ovaries grossly unremarkable, although visualization is limited due to bowel gas. This study was presented today 10/23/2023 at 10:00 AM for interpretation. PSA staff will provide results to referring provider at this time.
== END 2023-10-16 15:15 | disposition home or self-care (01) ==
LOC: HO.US 15:14
PROVIDERS: PCP Family Medicine; Visit Provider Advanced Practice Midwife
DX: N92.0 Excessive and frequent menstruation with regular cycle (principal)
CPT/HCPCS: 76830; 76856

== ENCOUNTER 2023-12-26 13:15 | Outpatient (AMB) | payer OTHER, SELFPAY ==
--- NOTE | 2023-12-26 13:42 | A.OFFVIS_ITS ---
Intake Vital Signs 12/26/23 13:43 Height 5 ft 2 in BP 122/84 Intake Visit Reasons: Ultra sound follow up Resource Development Director Required: Yes Resource Development Director Language: Offset Printing Pressmen Name: Geramnia Information Interpreted: non-clinical & clinical Demo Coordinator: Demo Coordinator Present Accompanied by: Daughter Allergies No Known Allergies Allergy (Verified 12/26/23 13:44) Is last menstrual period known: Yes HPI HPI Comments History of Present Illness Details Patient is here today with her daughter for a follow up ultrasound results. History of HMB, 3/7d. She has no concerns today. PFSH Medical History Pelvic pain HTN (hypertension) Surgical History History of facial surgery Hx of tubal ligation Family History Father Hypertension Hx of diabetes mellitus Hx of heart disorder Mother Hypertension Paternal Grandmother Family hx-stroke Paternal Grandfather Hypertension Maternal Aunt Hx of diabetes mellitus Maternal Grandmother Family history of cancer Social History Alcohol intake: never Patient Tobacco Use Status: Never used Tobacco Gender identity: Female Female Reproductive History Menstrual Age of Menarche: 13 Review of Systems Const All systems reviewed & are unremarkable except as noted in HPI and below Endo Reports no additional complaints Physical Exam Vital Signs: Last Vital Signs BP 122/84 12/26/23 13:43 Const General: cooperative, healthy appearing and no acute distress Psych Appearance: well kempt Attitude: cooperative Thought process: Normal thought process present Results Reviewed Results Reviewed: [address] [address] Ultrasound Report Signed with Lauryn Patient: Tomeka Massey MR#: [id number] : 1980 Acct:[id number] Age/Sex: 43 / F ADM Date: 10/16/23 Loc: HO.US Attending Dr: Yen Johnson CNM Ordering Physician: Yen Johnson CNM Date of Service: 10/16/23 Procedure(s): US pelvic and transvaginal Accession Number(s): [id number] cc: Marianna Jacobo DO; Yen Johnson [facility]~ ADDENDUMPSA Jazmín Murillo confirmed communication of results to nurse Sierra RN covering for Dr. Johnson on 10/23/2023 at 11:32 AM Addendum Dictated By: Earnestine Gao MD Addendum Signed By: <Electronically signed by Earnestine Gao MD in OV> 10/23/23 1412 Addendum Cosigned By: DD/ TD/TT: / EXAMINATION: US PELVIS CLINICAL INFORMATION: Heavy menses, last menstrual period first week of September. COMPARISON: 04/19/2022 TECHNIQUE: Ultrasound of the pelvis is performed using both transabdominal and transvaginal transducers along with Doppler. Transvaginal imaging is performed due to inadequate visualization transabdominally. FINDINGS: The uterus measures 8.5 x 4.2 x 5.1 cm. No discrete fibroids. Nabothian cysts. A 0.8 x 0.9 x 1.0 cm possible endometrial polyp with vascular stalk identified. Endometrial thickness is 16 mm. No significant free fluid. Right ovary measures 2.2 x 1.5 x 2.2 cm, volume of 5.5 mL. Left ovary measures 1.8 x 2.3 x 1.0 cm, volume 2.2 mL. The bilateral ovaries are grossly unremarkable, although visualization is limited due to bowel gas. US/US pelvic and transvaginal IMPRESSION: 1. A 1.0 cm possible endometrial polyp with vascular stalk identified. Gynecologic consultation and possible biopsy recommended. 2. No discrete fibroids. 3. Bilateral ovaries grossly unremarkable, although visualization is limited due to bowel gas. This study was presented today 10/23/2023 at 10:00 AM for interpretation. PSA staff will provide results to referring provider at this time. Dictated By: Earnestine Gao MD Signed By: <Electronically signed by Earnestine Gao MD in OV> 10/23/23 1042 DD/ 1605 TD/TT: Pricing/Signage Team Member: Assessment & Plan Assessment & Plan (1) Endometrial polyp: Code(s): N84.0 - Polyp of corpus uteri (2) Encounter to discuss test results: Code(s): Z71.2 - Person consulting for explanation of examination or test findings Plan Discussed: US findings endometrial polyp. Advised will need a hysteroscopy for removal. Office appointments with MD made today to have a preop consult completed. All of her questions and concerns were addressed to the best of my ability and shared decision making. She is agreeable to the plan of care. This note is constructed using voice recognition software. While every effort has been made to ensure accuracy, snag grinder errors may have been included. Coding Level of Care Code Est Pt Level 3 (24475) Diagnoses Endometrial polyp N84.0 Encounter to discuss test results Z71.2
[2023-12-26 13:43] VITALS: BP 122/84
== END 2023-12-27 08:03 | disposition home or self-care (01) ==
LOC: HO.HWS 13:15
PROVIDERS: PCP Family Medicine; Visit Provider Advanced Practice Midwife
DX: N84.0 Polyp of corpus uteri (principal); Z71.2 Person consulting for explanation of examination or test findings
CPT/HCPCS: 99213

== ENCOUNTER → 2023-12-26 13:15 | Outpatient (BNVA) | payer OTHER, SELFPAY | PROVIDERS: PCP Family Medicine; Visit Provider Advanced Practice Midwife | DX: N84.0 Polyp of corpus uteri (principal); Z71.2 Person consulting for explanation of examination or test findings | CPT/HCPCS: 99212 ==

== ENCOUNTER 2024-01-09 15:34 | Outpatient (AMB) | payer OTHER, SELFPAY ==
[2024-01-09 15:52] VITALS: BP 120/80; BMI 26.6
--- NOTE | 2024-01-09 15:52 | A.OFFVIS_ITS ---
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 Pelvic ultrasound done recently showed the following: The uterus measures 8.5 x 4.2 x 5.1 cm. No discrete fibroids. Nabothian cysts. A 0.8 x 0.9 x 1.0 cm possible endometrial polyp with vascular stalk identified. Endometrial thickness is 16 mm. No significant free fluid. Right ovary measures 2.2 x 1.5 x 2.2 cm, volume of 5.5 mL. Left ovary measures 1.8 x 2.3 x 1.0 cm, volume 2.2 mL. The bilateral ovaries are grossly unremarkable, although visualization is limited due to bowel gas. [facility] Medical History Pelvic pain HTN (hypertension) Surgical History History of facial surgery Hx of tubal ligation Family History Father Hypertension Hx of diabetes mellitus Hx of heart disorder Mother Hypertension Paternal Grandmother Family hx-stroke Paternal Grandfather Hypertension Maternal Aunt Hx of diabetes mellitus Maternal Grandmother Family history of cancer Social History Alcohol intake: never Patient Tobacco Use Status: Never used Tobacco Gender identity: Female Female Reproductive History Menstrual Age of Menarche: 13 Date of last menstrual period: 08/19/20 Total pregnancies: 2 Full term: 2 Review of Systems Card Reports as per HPI and Reports no additional complaints Resp Reports as per HPI and Reports no additional complaints GI Reports as per HPI and Reports no additional complaints Reports as per HPI Physical Exam Const General: cooperative, healthy appearing and comfortable Resp Effort & Inspection: normal respiratory effort Auscultation: clear to auscultation bilaterally Percussion: percussion normal Cardio Palpation: normal PMI Rate: regular rate Rhythm: regular rhythm Heart sounds: no murmurs and no rubs Peripheral pulses: Peripheral pulses 2+ throughout GI Inspection: Yes normal to inspection Palpation (GI): Soft to palpation, nontender, no guarding, not rigid and No hepatosplenomegaly present Percussion: Yes normal to percussion Auscultation: normal bowel sounds Rectal Exam - Female: deferred Assessment & Plan Assessment & Plan (1) Abnormal uterine bleeding: Comment: Endometrial polyp on ultrasound Code(s): N93.9 - Abnormal uterine and vaginal bleeding, unspecified Plan: Discussed with the patient the results of the ultrasound showing endometrial polyp, recommended hysteroscopy D&C possible polypectomy/myomectomy. Discussed with the patient the procedure , all benefits and risks including but not limited to inability to complete the procedure , insufficient endometrial tissue for a complete evaluation of the endometrial cavity , bleeding, infection, possible need for blood transfusion with all its risk ( HIV,syphilis, Hepatitis, anaphylaxis shock, others..), injury to bladder, rectum, possible need for laparoscopy/laparotomy or hysterectomy. The patient verbalized underst anding and signed the consent. Instructions given the patient to schedule a 2 week postoperative appointment Coding Level of Care Code Est Pt Level 3 (23642) Diagnoses Abnormal uterine bleeding N93.9
== END 2024-01-09 16:10 | disposition home or self-care (01) ==
LOC: HO.HWS 15:34
PROVIDERS: PCP Family Medicine; Visit Provider Obstetrics & Gynecology
DX: N93.9 Abnormal uterine and vaginal bleeding, unspecified (principal)
CPT/HCPCS: 99213

== ENCOUNTER → 2024-01-09 15:34 | Outpatient (BNVA) | payer OTHER, SELFPAY | PROVIDERS: PCP Family Medicine; Visit Provider Obstetrics & Gynecology | DX: N93.9 Abnormal uterine and vaginal bleeding, unspecified (principal) | CPT/HCPCS: 99212 ==

== ENCOUNTER 2024-02-01 07:34 | Day surgery (SDC) | payer OTHER, SELFPAY ==
[2024-01-29 08:08] VITALS: BMI 26.5
[2024-02-01 07:59] VITALS: BMI 26.5
[2024-02-01 08:11] VITALS: BP 147/82; PULSE 88; RESP 16; TEMP 36.9; O2SAT 98
[2024-02-01 08:16] LABS: UPreg QC Valid YES; Urine Pregnancy NEGATIVE (NEGATIVE)
[2024-02-01] MEDS: Lactated Ringers 1,000 ML 80 ML IVCONT (08:21)
--- NOTE | 2024-02-01 09:21 | MHC.SHP ---
Pre-Procedural Eval Section A - 24 Hr Update-Section A only Date of Service: 02/01/24 The patient is an INPATIENT: No Changes since office visit: No Cold of Flu in the past 2 weeks, No New Medical Problems, No Changes in Medication and No Patient answered all questions The patient has been examined within 24 hours of the surgical procedure. The History & Physical has been completed within 30 days and I have reviewed it.: Yes Section B - Complete if H&P > 30 days Chief Complaint: Abnormal uterine and vaginal bleeding, unspecified Allergies: Allergies Allergy/AdvReac Type Severity Reaction Status Date / Time No Known Allergies Allergy Verified 01/09/24 15:54 Plan Diagnosis/Plan: Unchanged I have reviewed the history and physical and performed a pertinent physical examination on my patient. No changes have occurred unless specified. Time Spent With Patient Time: Total time managing care of this patient today ____ minutes.
--- NOTE | 2024-02-01 09:35 | HO.ANESPROP2 ---
HPI - Anesthesia Eval Consult details Narrative: For D&C, hysteroscopy PMFSH Active Problems Active Problems: All Active Problems Abnormal uterine bleeding (Acute) Heavy menstrual bleeding (Acute) Vaginal itching (Acute) Encounter for annual routine gynecological examination (Acute) Endometrial mass (Acute) Uterine mass (Acute) Encounter to discuss test results (Acute) Pelvic pain (Acute) Past Medical History Medical History Pelvic pain HTN (hypertension) Patient : No Family History Family History Father Hypertension Hx of diabetes mellitus Hx of heart disorder Mother Hypertension Paternal Grandmother Family hx-stroke Paternal Grandfather Hypertension Maternal Aunt Hx of diabetes mellitus Maternal Grandmother Family history of cancer Family history of problems with anesthesia: No Surgical History Surgical History History of facial surgery Hx of tubal ligation History of Problems with Anesthesia: No Social History Social History Alcohol intake: never Patient Tobacco Use Status: Never used Tobacco Gender identity: Female Meds Allergies Allergy/AdvReac Type Severity Reaction Status Date / Time No Known Allergies Allergy Verified 01/09/24 15:54 Active Medications: Current Medications Lactated Ringer's (Lr) 1,000 mls @ 80 mls/hr IVCONT .[id number] BAKARI Last Admin: 02/01/24 08:21 Dose: 80 mls/hr Exam Height,Weight and Vital Signs: Height 5 ft 2 in Weight 65.771 kg Last Vital Signs Temp 98.5 F 02/01/24 08:11 Pulse 88 02/01/24 08:11 Resp 16 02/01/24 08:11 BP 147/82 H 02/01/24 08:11 Pulse Ox 98 02/01/24 08:11 O2 Del Method Room Air 02/01/24 08:11 Pertinent Lab Results Pertinent Lab Results: Laboratory Tests 02/01/24 07:50 Urine Test NEGATIVE Airway Mallampati Class: I TM Dist: >3cm Neck ROM: Full Loose/Missing/Broken Teeth: No Heart: ok Lungs: ok Assessment and Plan Assessment Anesthesia Assessment: Anesthesia Plan Discussed and Chart Reviewed Final Anesthetic Review Family History of Problems with Anesthesia: No History of Problems with Anesthesia: No NPO: Yes ASA Class: II Final Preanesthetic Review: No Changes in Pt Med Stat, Meds/Allgs Chart Reviewed, Consent Obtained/Reviewed and Anes Risks/Benef Reviewed Patient Risk: Low Procedure Risk: Low Anesthetic Plan Anesthetic Plan: GA and Agree w/ Assess. and Plan Disposition: Standard PACU
--- NOTE | 2024-02-01 10:18 | PM.OP ---
Brief Operative Note Date of Service: 02/01/24 Pre-op diagnosis: Abnormal uterine bleeding, endometrial polyp by ultrasound Post-op diagnosis: same (Endometrial polyp) Procedure: Hysteroscopy D&C, Polypectomy Surgeon: Zev Zhu MD Anesthesia: GLMA Was an Computer Systems Design Analyst used for this Procedure?: No Estimated blood loss (mL): 0 Pathology: other (Endometrial Scrapping. Polyp) Condition: stable Disposition: PACU
--- NOTE | 2024-02-01 10:18 | W.PM.OPN ---
Operative Note Operative Note Date of Service: 02/01/24 Narrative: Preop Diagnosis: Abnormal uterine bleeding, Endometrial polyp by US Operation: Diagnostic Hysteroscopy, Dilataion & Curettage and polypectomy Post Op Diagnosis: Endometrial Polyp QBL: Minimal Anesthesia: GLMA Surgeon: Zev Zhu MD Director Microbiology: None Complication: None Pathology: Endometrial Scrapings, Endometrial polyp Procedure: The patient was put in the dorsal lithotomy position, scrubbed, and draped in the usual manner. A sterile speculum was inserted in the patient's vagina. The anterior lip of the cervix was grasped with a single tooth tenaculum. The cervix was dilated up to 5 mm, then the scope was inserted in the patient's uterus. Inspection revealed endometrial polyp. The Myosure Reach device was used; it was introduced through the operative channel and polypectomy done with no complications. The scope was then taken out from the uterine cavity, sharp curettings was carried on with minimal to moderate amount of tissues retrieved. At the end of the procedure, all instruments were taken out of the patient uterine and vaginal cavity. The single tooth tenaculum was removed and homeostasis was assured using pressure,. The patient tolerated the procedure well and was transferred to the PACU in a stable condition.
[2024-02-01 10:26] VITALS: BP 137/83; PULSE 82; RESP 16; TEMP 36.4; O2SAT 97
[2024-02-01 10:31] VITALS: BP 145/85; PULSE 73; RESP 18; O2SAT 99
[2024-02-01 10:36] VITALS: BP 144/74; PULSE 66; RESP 18; O2SAT 98
[2024-02-01 10:41] VITALS: BP 143/80; PULSE 64; RESP 18; TEMP 36.4; O2SAT 100
== END 2024-02-01 11:20 | disposition home or self-care (01) ==
PROVIDERS: PCP Family Medicine; Visit Provider Obstetrics & Gynecology
PROC: 0UDB8ZZ Extraction of Endometrium, Via Natural or Artificial Opening Endoscopic (ICD-10-PCS; CPT 58558; principal; 2024-02-01 10:00)
DX: N93.9 Abnormal uterine and vaginal bleeding, unspecified (principal); N84.0 Polyp of corpus uteri; R10.2 Pelvic and perineal pain; N88.8 Other specified noninflammatory disorders of cervix uteri; I10 Essential (primary) hypertension; Z98.51 Tubal ligation status
CPT/HCPCS: 58558; 81025; 88305; J1885; J2405; J2704; J3010

== ENCOUNTER → 2024-02-01 07:34 | Outpatient (BNV) | payer OTHER, SELFPAY | PROVIDERS: PCP Family Medicine; Visit Provider Obstetrics & Gynecology | DX: N93.9 Abnormal uterine and vaginal bleeding, unspecified (principal); N84.0 Polyp of corpus uteri | CPT/HCPCS: 58558 ==

== ENCOUNTER 2024-02-18 15:24 | Outpatient (AMB) | payer OTHER, SELFPAY ==
[2024-02-18 16:05] VITALS: BP 130/80
--- NOTE | 2024-02-18 16:05 | MHC.OFFVIS ---
Vital Signs 02/18/24 16:05 BP 130/80 Intake Visit Reasons: post op [employer] Required: Yes [employer] Associate Language: Security System Sales Consultant Name: Germania Allergies No Known Allergies Allergy (Verified 02/18/24 16:09) HPI Comments Details: The patient is presenting post hysteroscopy D&C no complaints minimal vaginal bleeding no feverishness chills or abdominal pain. The pathology showed the following: A. Endometrial polyp, resection: Benign dyssynchronous endometrium with poorly developed secretory glands, dense stroma, features suggesting chronic endometritis, and glandular and stromal breakdown; no atypia or carcinoma (see comment). B. Endometrium, curettage: Benign dyssynchronous endometrium with poorly developed secretory glands, dense stroma, and glandular and stromal breakdown; no atypia or carcinoma (see comment). Comment: Some of the fragments may be derived from benign polyps The following workup was done.: H&H= 11.4/34.3 TSH, GC and chlamydia were negative. Co testing was done in 09/10 was negative. Mammogram was done in 03/13 was BI-RADS 1. Pelvic ultrasound showed the following: The uterus measures 8.5 x 4.2 x 5.1 cm. No discrete fibroids. Nabothian cysts. A 0.8 x 0.9 x 1.0 cm possible endometrial polyp with vascular stalk identified. Endometrial thickness is 16 mm. No significant free fluid. Right ovary measures 2.2 x 1.5 x 2.2 cm, volume of 5.5 mL. Left ovary measures 1.8 x 2.3 x 1.0 cm, volume 2.2 mL. The bilateral ovaries are grossly unremarkable, although visualization is limited due to bowel gas. [facility] Medical History Pelvic pain HTN (hypertension) Surgical History History of facial surgery Hx of tubal ligation Family History Father Hypertension Hx of diabetes mellitus Hx of heart disorder Mother Hypertension Paternal Grandmother Family hx-stroke Paternal Grandfather Hypertension Maternal Aunt Hx of diabetes mellitus Maternal Grandmother Family history of cancer Social History Alcohol intake: never Patient Tobacco Use Status: Never used Tobacco Gender identity: Female Female Reproductive History Menstrual Age of Menarche: 13 Review of Systems Const All systems reviewed & are unremarkable except as noted in HPI and below Reports as per HPI and Reports no additional complaints GI Reports no additional complaints Reports no additional complaints Assessment & Plan Assessment & Plan (1) Abnormal uterine bleeding: Comment: Endometrial polyp on ultrasound status post hysteroscopic polypectomy mils anemia Code(s): N93.9 - Abnormal uterine and vaginal bleeding, unspecified Category: Medical Plan: Fe SO4 325 mg po qd recommended Instructions given to the pt to schdeule her next screening mammogram in 03/14 Discussed with the patient the intraoperative findings, endometrial polyp and the pathology results. Discussed with the patient the results of the work up done and options of treatment including Lysteda, control pills, Mirena IUD, endometrial ablation and hysterectomy. All pros, cons, risks and benefits if each option was discussed with the patient and the patient decided to go ahead with Mirena IUD so a more detailed discussion about it was conducted including mechanism of action, risks (uterine perforation, infection, injury to bladder, bowel, displacement, and others) benefits (hypo menorrhea, amenorrhea, ...). GC/CT were taken and the patient was instructed to schedule Mirena IUD insertion on day 1-5 of next cycle . All questions answered, the patient verbalized understanding Coding Level of Care Code Est Pt Level 3 (39557) Diagnoses Abnormal uterine bleeding N93.9
== END 2024-02-18 16:27 | disposition home or self-care (01) ==
PROVIDERS: PCP Family Medicine; Visit Provider Obstetrics & Gynecology
DX: N93.9 Abnormal uterine and vaginal bleeding, unspecified (principal)
CPT/HCPCS: 99213

== ENCOUNTER → 2024-02-18 15:24 | Outpatient (BNVA) | payer OTHER, SELFPAY | PROVIDERS: PCP Family Medicine; Visit Provider Obstetrics & Gynecology | DX: N93.9 Abnormal uterine and vaginal bleeding, unspecified (principal); Z98.890 Other specified postprocedural states | CPT/HCPCS: 99212 ==

== ENCOUNTER 2024-03-21 15:49 | Outpatient (REF) | payer OTHER, SELFPAY | END 2024-03-21 15:50 | disposition home or self-care (01) | LOC: HO.MAMMO 15:49 | PROVIDERS: PCP Family Medicine; Visit Provider Family Medicine | DX: Z12.31 Encounter for screening mammogram for malignant neoplasm of breast (principal) | CPT/HCPCS: 77063; 77067 ==

== ENCOUNTER → 2024-03-21 16:00 | Outpatient (BNV) | payer OTHER, SELFPAY | PROVIDERS: PCP Family Medicine; Visit Provider Radiology Diagnostic Radiology | DX: Z12.31 Encounter for screening mammogram for malignant neoplasm of breast (principal) | CPT/HCPCS: 77063; 77067 ==

== ENCOUNTER 2024-06-06 12:39 | Outpatient (REF) | payer OTHER, SELFPAY ==
--- NOTE | ~2024-06-06 | XR_ITS ---
EXAMINATION: XR FOOT, LEFT CLINICAL INFORMATION: Left heel pain. COMPARISON: None available. TECHNIQUE: AP, lateral, and oblique views of the left foot. FINDINGS: The bones and soft tissues are normal. No fracture. Alignment is anatomic. Joint spaces are maintained. XR/XR foot LT min 3V IMPRESSION: Unremarkable examination.
== END 2024-06-06 12:40 | disposition home or self-care (01) ==
LOC: HO.HHCX 12:39
PROVIDERS: Visit Provider Family Medicine
DX: M79.672 Pain in left foot (principal)
CPT/HCPCS: 73630

== ENCOUNTER 2024-06-06 12:48 | Outpatient (REF) | payer OTHER, SELFPAY ==
[2024-06-06 16:11] LABS: Hemoglobin 12.4 g/dl (12.0-16.0); Mean Corpuscular HGB Conc 33.5 g/dl (31.0-35.0); Mean Corpuscular Hemoglobin 29.6 pg (27.0-33.0); Mean Corpuscular Volume 88.3 fL (80.0-98.0); Mean Platelet Volume 9.6 fL (9.4-12.3); Platelet Count 323 X10*3/uL (160-400); Red Blood Count 4.19 X10*6/uL (4.20-5.50); Red Cell Distribution Width 12.9 % (11.0-16.0); White Blood Count 6.3 X10*3/uL (4.8-10.8)
[2024-06-06 16:40] LABS: Alanine Aminotransferase 22 U/L (0-31); Albumin Level 4.5 g/dL (3.5-5.0); Alkaline Phosphatase 86 U/L (39-117); Anion Gap 14 (12-20); Aspartate Amino Transferase 19 U/L (5-31); Bilirubin Direct 0.1 mg/dL (0.0-0.5); Bilirubin Total 0.3 mg/dL (0.0-1.0); Blood Urea Nitrogen 12 mg/dL (9-16); Calcium 9.2 mg/dL (8.4-10.2); Carbon Dioxide 24 mmol/L (22-29); Chloride 106 mmol/L (96-108); Cholesterol 232 mg/dL (<200); Estimated Average Glucose 85 mg/dL; Estimated Glomerular Filt Rate > 60; Glucose Random 94 mg/dL (60-115); HDL Cholesterol 62 mg/dL (>40); Hemoglobin A1c % 4.6 % (<6.0); LDL Cholesterol Calculated 110 mg/dL (<100); Potassium 3.5 mmol/L (3.3-5.1); Sodium 140 mmol/L (135-145); Total Protein 7.6 g/dL (6.5-8.0); Triglycerides 304 mg/dL (<150)
[2024-06-06 17:00] LABS: Free T4 (Free Thyroxine) 0.71 ng/dL (0.71-1.85); Thyroid Stimulating Hormone 1.46 uIU/mL (0.32-4.0); Vitamin D 25-OH Total 24.9 ng/mL (>30)
[2024-06-07 04:34] LABS: Hepatitis A Antibody IgG Nonreactive (Nonreactive)
[2024-06-07 04:38] LABS: HBS Num1 0.62 mIU/mL (0-7.99); HBc Num1 0.11 S/CO (0.00-0.79); HBsAGNum1 0.42 S/CO (0.00-0.99); HIV AB/AG Nonreactive (Nonreactive); HIV Num 1 0.06 S/CO (0.00-0.99); Hepatitis B Core Antibody Nonreactive (Nonreactive); Hepatitis B Surface Antigen Negative (Negative); ~HepC Num1 0.22 S/CO (0.00-0.79); ~Hepatitis B Surface Antibody NONREACTIVE (Nonreactive); ~Hepatitis C Antibody Nonreactive (Nonreactive)
[2024-06-09 13:23] LABS: RPR Rapid Plasma Reagin NON-REACTIVE (NON-REACTIVE)
== END 2024-06-06 12:49 | disposition home or self-care (01) ==
LOC: HO.HHCL 12:48
PROVIDERS: Visit Provider Family Medicine
DX: Z00.00 Encounter for general adult medical examination without abnormal findings (principal); I10 Essential (primary) hypertension; H92.02 Otalgia, left ear; M79.672 Pain in left foot; R29.898 Other symptoms and signs involving the musculoskeletal system
CPT/HCPCS: 36415; 80048; 80061; 80076; 82306; 83036; 84439; 84443; 85027; 86592; 86704; 86706; 86708; 86803; 87340; 87389

== ENCOUNTER 2025-03-27 15:40 | Outpatient (REF) | payer MEDICAID, SELFPAY ==
--- OUTSIDE RECORDS SUMMARY | 2025-03-27 15:42 | XMS_ITS | Encounter Summary ---
Author Organization [employer] Address [address] [place] [address] Care Team Providers Care Supervisor [place] Name Role Phone Marianna Jacobo DO Primary Care Provider [phone] Encounter Details Date Type Department Care Team (Latest Contact Info) Description 06/09/2019 Abstract [facility] CONVERSIONS Dental, Provider, DDS Social History Tobacco Use Types Packs/Day Years Used Date Smoking Tobacco: Never Assessed Comments Unknown Sex and Gender Information Value Date Recorded Sex Assigned at Female 08/21/2022 10:22 AM EDT Legal Sex Female 10:22 AM EDT Gender Identity Female 08/21/2022 10:22 AM EDT Sexual Orientation Choose not to disclose 2021 10:22 AM EDT documented as of this encounter Plan of Treatment Not on file documented as of this encounter Visit Diagnoses Not on filedocumented in this encounter Care Teams Supervisor [place] Relationship Specialty Start Date End Date Marianna Jacobo DO [address] [place] [id number] PCP - General Family Medicine 01/22/12 documented as of this encounter
== END 2025-03-27 15:41 | disposition home or self-care (01) ==
LOC: HO.MAMMO 15:40
PROVIDERS: PCP Family Medicine; Visit Provider Family Medicine
DX: Z12.31 Encounter for screening mammogram for malignant neoplasm of breast (principal)
CPT/HCPCS: 77063; 77067

== ENCOUNTER → 2025-03-27 16:00 | Outpatient (BNV) | payer MEDICAID, SELFPAY | PROVIDERS: PCP Family Medicine; Visit Provider Internal Medicine | DX: Z12.31 Encounter for screening mammogram for malignant neoplasm of breast (principal) | CPT/HCPCS: 77063; 77067 ==